=== PATIENT | male | born 2000 | race Caucasian/White ===

== ENCOUNTER 2022-07-07 01:48 | Emergency (ER) | payer OTHER ==
[2022-07-07 01:53] VITALS: TEMP 98.6
[2022-07-07] MEDS ORDERED: LIDOCAINE 1% INJ 10MG/ML (30 ML VIAL-PF) SQ ONE (02:15)
--- NOTE | 2022-07-07 02:25 | ED ---
Wound/Laceration HPI - General Chief Complaint: Wound/Laceration Stated Complaint: Left thumb laceration Time Seen by Provider: 07/07/22 01:59 Source: patient, RN notes reviewed Mode of arrival: ambulatory Limitations: no limitations - History of Present Illness Initial Comments: This is a left-hand dominant 22-year-old male who was doing some metal work at home when a grinding wheel slipped and went into the dorsum of his left thumb. Patient states she bandages [place]. Patient was able to obtain hemostasis. However went to the bandage off he had his sister looked at it who suggested he come to the ER for care. . Alleviated by rest. Last tetanus unknown. No health problems. No headache, no fever or chills, no changes in vision or hearing, no sore throat or difficulty with speech, no neck pain, no chest pain or shortness of breath, no abdominal pain, no nausea or vomiting, no changes in urination or bowel movements, no numbness or tingling, no skin rashes or lesions. Past medical, surgical, social, and family history reviewed. - Related Data Allergies Allergy/AdvReac Type Severity Reaction Status Date / Time No Known Allergies Allergy Verified 07/07/22 01:53 Review of Systems ROS Statement: Those systems with pertinent positive or pertinent negative responses have been documented in the HPI. ROS Other: All systems not noted in ROS Statement are negative. Past Medical History Additional Past Medical History / Comment(s): IBS, TACHY History of Any Multi-Drug Resistant Organisms: None Reported Past Surgical History: No Surgical Hx Reported Past Psychological History: Anxiety, Depression Smoking Status: Never smoker Past Alcohol Use History: Occasional Past Drug Use History: None Reported General Exam Limitations: no limitations General appearance: alert, in no apparent distress Head exam: Present: atraumatic, normocephalic, normal inspection Eye exam: Present: normal appearance, EOMI Neck exam: Present: normal inspection, full ROM Respiratory exam: Present: normal lung sounds bilaterally. Absent: respiratory distress, wheezes, rales, rhonchi, stridor Cardiovascular Exam: Present: regular rate, normal rhythm, normal heart sounds. Absent: systolic murmur, diastolic murmur, rubs, gallop, clicks GI/Abdominal exam: Present: soft. Absent: tenderness Left Elbow exam: Present: normal inspection, full ROM. Absent: tenderness Forearm Wrist exam: Present: normal inspection, full ROM. Absent: tenderness Hand Wrist exam: Present: full ROM, tenderness (Mild tenderness dorsum of the left thumb overlying the IP joint), laceration. Absent: normal inspection, swelling, abrasion, ecchymosis, deformity, crepitus, dislocation, erythema, amputation, nail avulsion, subungual hematoma Neuro motor exam: Present: wrist extension intact, thumb opposition intact, thumb IP flexion intact, thumb adduction intact, fingers 2-5 abduction intact Neurosensory exam: Present: radial nerve intact, ulnar nerve intact, median nerve intact Vascular: Present: normal capillary refill. Absent: vascular compromise, Pallo, pulse deficit radial art, pulse deficit ulnar art Neurological exam: Present: alert, oriented X3, CN II-XII intact. Absent: motor sensory deficit Psychiatric exam: Present: normal affect, normal mood Skin exam: Present: warm, dry, normal color. Absent: rash Course Vital Signs 07/07/22 01:50 Temperature 98.6 F Pulse Rate 90 Respiratory 18 Rate Blood Pressure 158/87 O2 Sat by Pulse 100 Oximetry Procedures - Laceration Laceration #1 Consent Obtained: verbal consent Indication: laceration Site: upper extremity (Left thumb) Description: flap, contaminated (Contaminated with oral and possibly small grinding plate material) Anesthetic Used: lidocaine 1% Anesthesia Technique: nerve block (Digital block) Amount (mls): 3 Pre-repair: wound explored, irrigated extensively (All 4 material moved to the best of my ability), deep structures intact Type of Sutures: nylon Size of Sutures: 5-0 Number of Sutures: 4 Technique: simple, interrupted Patient Tolerated Procedure: well, no complications Additional Comments: There was no evidence of damage to underlying structures. Tendon was not visualized. Patient had good tendon function. Medical Decision Making - Medical Decision Making Discussed wound care in detail with the patient. Discussed signs and symptoms of infection. Discussed suture removal. Suture removal in 10 days. Patient was told to return to the ER for any signs or symptoms worsen. Told to return immediately if any other problems arise. All questions answered. Treatment plan discussed. Patient in agreement Every effort has been made to ensure accuracy of this dictation. However, due to the limitations of electronic medical records and dictation devices, errors in charting still occur. Revising physician Dr. Fernandez - Radiology Data Radiology results: report reviewed, image reviewed I did interpret the x-rays myself. No evidence of foreign body. No osseous lesion. No dislocation or fracture. Agree with radiology interpretation. Disposition Clinical Impression: Laceration of left thumb without complication Disposition: HOME SELF-CARE Condition: Good Instructions (If sedation given, give patient instructions): Care For Your Stitches (ED), Laceration (ED) Additional Instructions: Wash the wound once a day with soap and water or whenever becomes soiled. Apply thin layer of antibiotic ointment such as Neosporin or triple antibiotic ointment. Keep covered with a Band-Aid or sterile bandage. Return for suture removal in 10 days. Follow-up with your regular physician as directed. Return to the ER immediately if any symptoms worsen, new symptoms arise, or any other problems develop. Is patient prescribed a controlled substance at d/c from ED?: No Referrals: None,Stated [Primary Care Provider] - 1-2 days Time of Disposition: 03:22
--- NOTE | 2022-07-07 02:50 | XR ---
EXAMINATION TYPE: XR finger LT DATE OF EXAM: 07/07/2022 COMPARISON: NONE HISTORY: Laceration TECHNIQUE: 3 views FINDINGS: There is no evidence of fracture nor dislocation. Joint spaces are normal no evidence of a foreign body. IMPRESSION: Negative left thumb exam.
[2022-07-07] MEDS ORDERED: BACITRACIN ZINC 500 UNIT/GM OINT 28.4 GM TUBE TOPICAL STA (03:18)
[2022-07-07 03:51] VITALS: BP 124/72; PULSE 78; RESP 16
== END 2022-07-07 03:49 | disposition home or self-care (01) ==
LOC: EC 01:48
DX: S61.012A Laceration without foreign body of left thumb without damage to nail, initial encounter (principal); F41.9 Anxiety disorder, unspecified; F32.A Depression, unspecified; W22.8XXA Striking against or struck by other objects, initial encounter; Y99.0 Civilian activity done for income or pay
CPT/HCPCS: 73140; 99283; 12001; J2001